=== PATIENT | male | born 1970 | race Caucasian/White ===

== ENCOUNTER 2016-10-27 15:14 | Emergency (ER) | payer SELFPAY ==
[~2016-10-27] VITALS: Ht 188 cm; Wt 67.7 kg
[2016-10-27 16:37] LABS: CHLORIDE 100 mEq/L (99-109); POTASSIUM 3.6 mEq/L (3.7-5.4); SODIUM 140 mEq/L (136-147)
[2016-10-27 16:39] LABS: GLUCOSE 168 mg/dL (70-99)
[2016-10-27 16:41] LABS: ANION GAP 16 MEQ/L (2-14); TOTAL BILIRUBIN 2.1 mg/dL (0.0-1.0)
[2016-10-27 16:43] LABS: ALKALINE PHOSPHATASE 144 IU/L (3-129)
[2016-10-27 16:45] LABS: GFR ESTIMATE (CALCULATED) > 59 mL/min/; UREA NITROGEN (BUN) 13 mg/dL (9-23)
[2016-10-27 16:57] LABS: HEMATOCRIT 45.1 % (38.0-50.0); MCH 37.5 PG (29.0-34.0); MCHC 36.6 G/DL (30.0-36.0); MCV 102.5 FL (86-99); MEAN PLAT.VOLUME 9.3 uM^3 (9.0-12.4); PLATELET COUNT 219 K/uL (156-360); RBC DIS.WIDTH-CV 13.6 % (11.8-14.6); RBC DIS.WIDTH-SD 50.7 % (39-53); WHITE BLOOD COUNT 14.7 K/uL (4.1-10.2)
[2016-10-27 17:28] LABS: ADD MIUA? YES; BILIRUBIN MODERATE; BLOOD NEGATIVE; COLOR AMBER ((YELLOW)); GLUCOSE (STRIP) NEGATIVE; KETONES 20; LEUKOCYTES NEGATIVE; NITRITE NEGATIVE; PROTEIN (STRIP) 100; SPECIFIC GRAVITY 1.031 (1.000-1.030)
[2016-10-27 17:57] LABS: ICTOTEST NEGATIVE
[2016-10-27 18:13] LABS: EPITHELIAL CELLS NONE SEEN /HPF; MUCUS 3+ /LPF; RED BLOOD CELLS 0-5 /HPF (0-5); WHITE BLOOD CELLS 0-5 /HPF (0-5)
[2016-10-27 18:14] LABS: AMORPHOUS URATES CRYSTALS 3+; BACTERIA NONE SEEN /HPF; CRYSTALS PRESENT; UCUL ADDED? NO
[2016-10-27 18:34] LABS: INFLUENZA A VIRAL ANTIGEN NEGATIVE; INFLUENZA B VIRAL ANTIGEN NEGATIVE
[2016-10-27] MEDS ORDERED: ZOFRAN ODT4 MG PO (20:32)
[2016-10-27] MEDS ORDERED: BENTYL20 MG PO (20:32)
[2016-10-27 21:05] VITALS: BP 138/88
== END 2016-10-27 21:06 | disposition home or self-care (01) ==
LOC: EME 15:14
PROVIDERS: Nurse Practitioner Family
DX: R11.2 Nausea with vomiting, unspecified (principal); R10.9 Unspecified abdominal pain
CPT/HCPCS: 74000; 80053; 81003; 85027; 87502; 99281; 99285; J0500; J1885; J2405; J7030

== ENCOUNTER 2016-12-06 15:30 | Emergency (ER) | payer SELFPAY ==
[~2016-12-06] VITALS: Ht 188 cm; Wt 68.7 kg
[~2016-12-06 15:30] MED LIST: BENTYL20 MG PO; ZOFRAN ODT4 MG PO
[2016-12-06 15:56] LABS: ADD MIUA? YES; BILIRUBIN MODERATE; BLOOD NEGATIVE; COLOR AMBER ((YELLOW)); GLUCOSE (STRIP) NEGATIVE; KETONES 5; LEUKOCYTES NEGATIVE; NITRITE NEGATIVE; PROTEIN (STRIP) 30; SPECIFIC GRAVITY 1.029 (1.000-1.030)
[2016-12-06 16:00] LABS: BACTERIA RARE /HPF; EPITHELIAL CELLS RARE /HPF; HYALINE CASTS 0-5 /LPF; MUCUS 4+ /LPF; RED BLOOD CELLS 0-5 /HPF (0-5); UCUL ADDED? NO; WHITE BLOOD CELLS 0-5 /HPF (0-5)
[2016-12-06 16:01] LABS: HEMATOCRIT 40.8 % (38.0-50.0); MCH 38.3 PG (29.0-34.0); MCHC 36.5 G/DL (30.0-36.0); MCV 104.9 FL (86-99); MEAN PLAT.VOLUME 8.9 uM^3 (9.0-12.4); PLATELET COUNT 323 K/uL (156-360); RBC DIS.WIDTH-CV 14.1 % (11.8-14.6); RBC DIS.WIDTH-SD 54.4 % (39-53); RED BLOOD COUNT 3.89 M/uL (4.00-5.50); WHITE BLOOD COUNT 8.6 K/uL (4.1-10.2)
[2016-12-06 16:10] LABS: CHLORIDE 97 mEq/L (99-109); SODIUM 136 mEq/L (136-147)
[2016-12-06 16:12] LABS: GLUCOSE 95 mg/dL (70-99)
[2016-12-06 16:14] LABS: ANION GAP 16 MEQ/L (2-14); TOTAL BILIRUBIN 1.8 mg/dL (0.0-1.0)
[2016-12-06 16:17] LABS: ALKALINE PHOSPHATASE 149 IU/L (3-129); GFR ESTIMATE (CALCULATED) > 59 mL/min/; UREA NITROGEN (BUN) 11 mg/dL (9-23)
[2016-12-06 16:25] LABS: ICTOTEST POSITIVE
[2016-12-06 16:38] LABS: LIPASE 39 U/L (1.0-51.0)
[2016-12-06] MEDS ORDERED: BENTYL10 MG PO ×2 (17:59→18:00)
[2016-12-06] MEDS ORDERED: ZOFRAN ODT4 MG PO (17:59)
[2016-12-06 18:44] VITALS: BP 145/94
== END 2016-12-06 18:45 | disposition home or self-care (01) ==
LOC: EME 15:30
DX: R11.10 Vomiting, unspecified (principal); R19.7 Diarrhea, unspecified; R42 Dizziness and giddiness; F17.200 Nicotine dependence, unspecified, uncomplicated
CPT/HCPCS: 71020; 76705; 80053; 81003; 83690; 85027; 99281; 99284; J1885; J2405; J7030